=== PATIENT | male | born 1960 | race African-American/Black ===

== ENCOUNTER 2020-01-18 11:35 | Inpatient (IN) ==
[2020-01-18] MEDS ORDERED: LEVOFLOXACIN INJ 750 MG in PREMIX 1 EACH IV STA (13:15)
[2020-01-18 13:44] LABS: Basophils # 0.1 10*3/uL (0.0-0.2); Basophils % 0.5 % (0.0-0.8); Eosinophils # 0.3 10*3/uL (0.0-0.87); Eosinophils % 2.6 % (0.00-10.9); Hematocrit 35.3 VOL% (42.0-52.0); Immature Granulocytes % 0.5 %; Immature Granulocytes Absolute 0.05 #; Lymphocytes # 1.7 10*3/uL (1.4-4.0); Lymphocytes % 17.2 % (21.2-54.2); Mean Corpuscular HGB Conc 31.2 GM/DL (32-36); Mean Corpuscular Volume 74.2 FL (87-102); Mean Platelet Volume 9.7 FL (9.6-12.0); Monocytes % 9.2 % (1.7-12.7); Platelet Count 293 T/CUMM (130-400); Red Blood Count 4.76 MC/CUMM (3.8-5.5); Red Cell Distribution Width 14.1 % (9.3-17.3); White Blood Count 9.9 T/CUMM (4-12)
[2020-01-18 14:13] LABS: Alanine Aminotransferase < 9 U/L (16-61); Albumin 2.9 G/DL (3.4-5.0); Alkaline Phosphatase 75 U/L (45-117); Aspartate Amino Transferase 9 U/L (0-37); Bilirubin,Total < 0.39 MG/DL (0.2-1.0); Blood Urea Nitrogen 30 MG/DL (7-18); Calcium 10.8 MG/DL (8.5-10.1); Estimated Glom Filtration Rate 9 ML/MIN; Glucose 88 MG/DL (74-106); Osmolality,Calculated 266.7 MOS/KG (273-304); Total Protein 8.2 G/DL (6.4-8.3)
[2020-01-18] MEDS ORDERED: DEXTROSE 50% 25 GM/50 ML SYRINGE IV PRN (15:41)
[2020-01-18] MEDS ORDERED: GLUCAGON 1 MG VIAL IM PRN (15:41)
[2020-01-18] MEDS ORDERED: LOPERAMIDE 2 MG CAPSULE PO PRN (16:02)
[2020-01-18] MEDS ORDERED: INFLUENZA VIRUS VACCINE 0.5 ML SYRINGE IM ONE (19:40)
[2020-01-18] MEDS: MEROPENEM 500 MG in SODIUM CHLORIDE 0.9% 100 ML IV SCH (21:40)
[2020-01-18] MEDS: METOPROLOL TARTRATE 100 MG TABLET PO SCH (21:40)
[2020-01-18] MEDS: hydrALAZINE 25 MG TABLET PO SCH (21:40)
[2020-01-18] MEDS: TOBRAMYCIN/DEXAMETHASONE OPH OINT 3.5 GM TUBE BOTH EYES SCH (21:44)
[2020-01-18] MEDS: MINERAL OIL/PETROLATUM OPH OINT 3.5 GM TUBE BOTH EYES SCH (21:45)
[2020-01-18] MEDS: POLYVINYL ALCOHOL 1.4% OPH SOLN 15 ML BOTTLE LEFT EYE SCH (21:46)
[2020-01-19 04:45] LABS: Basophils % 0.3 % (0.0-0.8); Eosinophils # 0.3 10*3/uL (0.0-0.87); Eosinophils % 2.1 % (0.00-10.9); Hematocrit 31.6 VOL% (42.0-52.0); Hemoglobin 9.8 GM/DL (14.0-18.0); Immature Granulocytes % 0.5 %; Immature Granulocytes Absolute 0.07 #; Lymphocytes # 1.6 10*3/uL (1.4-4.0); Lymphocytes % 12.4 % (21.2-54.2); Mean Corpuscular Volume 74.7 FL (87-102); Mean Platelet Volume 10.2 FL (9.6-12.0); Monocytes % 8.2 % (1.7-12.7); Neutrophils % 76.5 % (38.7-73.9); Platelet Count 301 T/CUMM (130-400); Red Blood Count 4.23 MC/CUMM (3.8-5.5); Red Cell Distribution Width 13.7 % (9.3-17.3); White Blood Count 13.1 T/CUMM (4-12)
[2020-01-19 05:04] LABS: Calcium 10.8 MG/DL (8.5-10.1); Osmolality,Calculated 265.8 MOS/KG (273-304)
[2020-01-19] MEDS: hydrALAZINE 25 MG TABLET PO SCH ×3 (05:33→21:27)
[2020-01-19] MEDS: POLYVINYL ALCOHOL 1.4% OPH SOLN 15 ML BOTTLE LEFT EYE SCH ×5 (05:33→21:28)
[2020-01-19] MEDS ORDERED: busPIRone 5 MG TABLET PO SCH (09:00)
[2020-01-19] MEDS: FINASTERIDE 5 MG TABLET PO SCH (09:32)
[2020-01-19] MEDS: SEVELAMER CARBONATE POWDER 2.4 GM PACK PO SCH (09:32)
[2020-01-19] MEDS: busPIRone 5 MG TABLET PO SCH (09:32)
[2020-01-19] MEDS: METOPROLOL TARTRATE 100 MG TABLET PO SCH ×2 (09:32→21:27)
[2020-01-19] MEDS: MULTIVITAMIN (CENTRUM) TABLET PO SCH (09:33)
[2020-01-19] MEDS: FERROUS SULFATE 325 MG TABLET PO SCH (09:33)
[2020-01-19] MEDS: amLODIPine 10 MG TABLET PO SCH (09:33)
[2020-01-19] MEDS: TOBRAMYCIN/DEXAMETHASONE OPH OINT 3.5 GM TUBE BOTH EYES SCH ×3 (09:34→21:29)
[2020-01-19] MEDS: MINERAL OIL/PETROLATUM OPH OINT 3.5 GM TUBE BOTH EYES SCH ×3 (09:35→21:29)
[2020-01-19] MEDS ORDERED: LIDOCAINE 1% 20 ML VIAL MISC INJ ONE (10:10)
[2020-01-19] MEDS ORDERED: LIDOCAINE 2% VISCOUS 100 ML BOTTLE SWISH/SPIT ONE (10:10)
[2020-01-19] MEDS ORDERED: MEPERIDINE 50 MG/1 ML VIAL IM ONE (10:10)
[2020-01-19] MEDS ORDERED: PROMETHAZINE 25 MG/1 ML VIAL IM ONE (10:10)
[2020-01-19] MEDS ORDERED: LIDOCAINE 2% 20 ML VIAL RESP TX ONE (10:10)
[2020-01-19] MEDS ORDERED: MIDAZOLAM 2 MG/2 ML VIAL IV ONE (10:30)
[2020-01-19] MEDS: ALBUTEROL/IPRATROPIUM 3 ML NEB RESP TX SCH ×2 (12:39→19:30)
[2020-01-19] MEDS ORDERED: AZITHROMYCIN INJ 500 MG in SODIUM CHLORIDE 0.9% 250 ML IV SCH (13:30)
[2020-01-19] MEDS: MEROPENEM 500 MG in SODIUM CHLORIDE 0.9% 100 ML IV SCH (21:30)
[2020-01-20] MEDS: ALBUTEROL/IPRATROPIUM 3 ML NEB RESP TX SCH ×4 (01:33→18:48)
[2020-01-20 04:08] LABS: Basophils # 0.1 10*3/uL (0.0-0.2); Basophils % 0.4 % (0.0-0.8); Eosinophils # 0.1 10*3/uL (0.0-0.87); Eosinophils % 0.8 % (0.00-10.9); Hematocrit 33.8 VOL% (42.0-52.0); Hemoglobin 10.5 GM/DL (14.0-18.0); Immature Granulocytes % 0.6 %; Immature Granulocytes Absolute 0.09 #; Lymphocytes # 1.8 10*3/uL (1.4-4.0); Lymphocytes % 11.7 % (21.2-54.2); Mean Corpuscular HGB Conc 31.1 GM/DL (32-36); Mean Corpuscular Volume 74.3 FL (87-102); Mean Platelet Volume 10.5 FL (9.6-12.0); Monocytes % 7.4 % (1.7-12.7); Neutrophils % 79.1 % (38.7-73.9); Platelet Count 344 T/CUMM (130-400); Red Blood Count 4.55 MC/CUMM (3.8-5.5); Red Cell Distribution Width 13.8 % (9.3-17.3); White Blood Count 15.3 T/CUMM (4-12)
[2020-01-20 04:46] LABS: Calcium 10.7 MG/DL (8.5-10.1); Osmolality,Calculated 267.9 MOS/KG (273-304)
[2020-01-20] MEDS: POLYVINYL ALCOHOL 1.4% OPH SOLN 15 ML BOTTLE LEFT EYE SCH ×5 (05:47→21:16)
[2020-01-20] MEDS: hydrALAZINE 25 MG TABLET PO SCH ×3 (05:47→21:03)
[2020-01-20] MEDS: MINERAL OIL/PETROLATUM OPH OINT 3.5 GM TUBE BOTH EYES SCH ×4 (10:21→21:16)
[2020-01-20] MEDS: TOBRAMYCIN/DEXAMETHASONE OPH OINT 3.5 GM TUBE BOTH EYES SCH ×4 (10:21→21:16)
[2020-01-20] MEDS ORDERED: VANCOMYCIN INJ 500 MG in SODIUM CHLORIDE 0.9% 100 ML IV PRN (10:39)
[2020-01-20] MEDS: FINASTERIDE 5 MG TABLET PO SCH (13:11)
[2020-01-20] MEDS: SEVELAMER CARBONATE POWDER 2.4 GM PACK PO SCH (13:11)
[2020-01-20] MEDS: MULTIVITAMIN (CENTRUM) TABLET PO SCH (13:11)
[2020-01-20] MEDS: FERROUS SULFATE 325 MG TABLET PO SCH (13:11)
[2020-01-20] MEDS: amLODIPine 10 MG TABLET PO SCH (13:11)
[2020-01-20] MEDS: busPIRone 5 MG TABLET PO SCH (13:12)
[2020-01-20] MEDS: AZITHROMYCIN 250 MG TABLET PO SCH (13:12)
[2020-01-20] MEDS: METOPROLOL TARTRATE 100 MG TABLET PO SCH ×2 (13:12→21:03)
[2020-01-20] MEDS ORDERED: VANCOMYCIN INJ 1,500 MG in SODIUM CHLORIDE 0.9% 500 ML IV ONE (17:00)
[2020-01-20] MEDS: MEROPENEM 500 MG in SODIUM CHLORIDE 0.9% 100 ML IV SCH (21:03)
[2020-01-21] MEDS: ALBUTEROL/IPRATROPIUM 3 ML NEB RESP TX SCH ×4 (00:10→19:03)
[2020-01-21 06:36] LABS: Basophils % 0.2 % (0.0-0.8); Eosinophils # 0.2 10*3/uL (0.0-0.87); Eosinophils % 1.6 % (0.00-10.9); Hematocrit 29.5 VOL% (42.0-52.0); Hemoglobin 9.2 GM/DL (14.0-18.0); Immature Granulocytes % 0.5 %; Immature Granulocytes Absolute 0.07 #; Lymphocytes # 1.6 10*3/uL (1.4-4.0); Lymphocytes % 10.1 % (21.2-54.2); Mean Corpuscular HGB Conc 31.2 GM/DL (32-36); Mean Corpuscular Volume 74.9 FL (87-102); Mean Platelet Volume 10.6 FL (9.6-12.0); Monocytes % 7.5 % (1.7-12.7); Neutrophils % 80.1 % (38.7-73.9); Platelet Count 254 T/CUMM (130-400); Red Blood Count 3.94 MC/CUMM (3.8-5.5); Red Cell Distribution Width 13.7 % (9.3-17.3); White Blood Count 15.3 T/CUMM (4-12)
[2020-01-21 06:41] LABS: Osmolality,Calculated 270.1 MOS/KG (273-304)
[2020-01-21] MEDS: POLYVINYL ALCOHOL 1.4% OPH SOLN 15 ML BOTTLE LEFT EYE SCH ×5 (07:18→21:19)
[2020-01-21] MEDS: hydrALAZINE 25 MG TABLET PO SCH ×3 (07:18→21:18)
[2020-01-21] MEDS: MULTIVITAMIN (CENTRUM) TABLET PO SCH ×2 (09:21→09:58)
[2020-01-21] MEDS: busPIRone 5 MG TABLET PO SCH ×2 (09:21→09:58)
[2020-01-21] MEDS: METOPROLOL TARTRATE 100 MG TABLET PO SCH ×3 (09:21→21:18)
[2020-01-21] MEDS: AZITHROMYCIN 250 MG TABLET PO SCH ×2 (09:21→09:59)
[2020-01-21] MEDS: amLODIPine 10 MG TABLET PO SCH ×2 (09:22→09:58)
[2020-01-21] MEDS: FERROUS SULFATE 325 MG TABLET PO SCH ×2 (09:22→09:58)
[2020-01-21] MEDS: SEVELAMER CARBONATE POWDER 2.4 GM PACK PO SCH ×2 (09:22→09:58)
[2020-01-21] MEDS: FINASTERIDE 5 MG TABLET PO SCH ×2 (09:22→09:59)
[2020-01-21] MEDS: TOBRAMYCIN/DEXAMETHASONE OPH OINT 3.5 GM TUBE BOTH EYES SCH ×4 (09:23→21:20)
[2020-01-21] MEDS: MINERAL OIL/PETROLATUM OPH OINT 3.5 GM TUBE BOTH EYES SCH ×4 (09:24→21:20)
[2020-01-21] MEDS: CLINDAMYCIN INJ 600 MG in PREMIX 1 EACH IV SCH ×2 (13:19→21:18)
[2020-01-21] MEDS: LACTULOSE 20 GM/30 ML UDCUP PO SCH ×2 (13:19→21:18)
[2020-01-22] MEDS: ALBUTEROL/IPRATROPIUM 3 ML NEB RESP TX SCH ×4 (01:24→19:35)
[2020-01-22] MEDS: CLINDAMYCIN INJ 600 MG in PREMIX 1 EACH IV SCH ×3 (04:46→21:21)
[2020-01-22] MEDS: hydrALAZINE 25 MG TABLET PO SCH ×3 (05:47→21:22)
[2020-01-22] MEDS: POLYVINYL ALCOHOL 1.4% OPH SOLN 15 ML BOTTLE LEFT EYE SCH ×5 (05:48→21:19)
[2020-01-22 06:17] LABS: Basophils # 0.1 10*3/uL (0.0-0.2); Basophils % 0.5 % (0.0-0.8); Eosinophils # 0.5 10*3/uL (0.0-0.87); Eosinophils % 5.4 % (0.00-10.9); Hematocrit 30.3 VOL% (42.0-52.0); Hemoglobin 9.5 GM/DL (14.0-18.0); Immature Granulocytes % 0.5 %; Immature Granulocytes Absolute 0.05 #; Lymphocytes # 1.2 10*3/uL (1.4-4.0); Lymphocytes % 13.2 % (21.2-54.2); Mean Corpuscular HGB Conc 31.4 GM/DL (32-36); Mean Corpuscular Volume 76.1 FL (87-102); Mean Platelet Volume 9.9 FL (9.6-12.0); Monocytes % 10.7 % (1.7-12.7); Neutrophils % 69.7 % (38.7-73.9); Platelet Count 235 T/CUMM (130-400); Red Blood Count 3.98 MC/CUMM (3.8-5.5); Red Cell Distribution Width 13.8 % (9.3-17.3); White Blood Count 9.3 T/CUMM (4-12)
[2020-01-22 06:38] LABS: Calcium 10.5 MG/DL (8.5-10.1); Osmolality,Calculated 279.7 MOS/KG (273-304)
[2020-01-22] MEDS: MULTIVITAMIN (CENTRUM) TABLET PO SCH (08:48)
[2020-01-22] MEDS: METOPROLOL TARTRATE 100 MG TABLET PO SCH ×2 (08:48→21:20)
[2020-01-22] MEDS: FINASTERIDE 5 MG TABLET PO SCH (08:48)
[2020-01-22] MEDS: SEVELAMER CARBONATE POWDER 2.4 GM PACK PO SCH (08:48)
[2020-01-22] MEDS: amLODIPine 10 MG TABLET PO SCH (08:48)
[2020-01-22] MEDS: FERROUS SULFATE 325 MG TABLET PO SCH (08:48)
[2020-01-22] MEDS: busPIRone 5 MG TABLET PO SCH (08:48)
[2020-01-22] MEDS: LACTULOSE 20 GM/30 ML UDCUP PO SCH ×2 (08:49→21:20)
[2020-01-22] MEDS: MINERAL OIL/PETROLATUM OPH OINT 3.5 GM TUBE BOTH EYES SCH ×4 (08:49→21:21)
[2020-01-22] MEDS: TOBRAMYCIN/DEXAMETHASONE OPH OINT 3.5 GM TUBE BOTH EYES SCH ×4 (08:49→21:21)
[2020-01-23] MEDS: ALBUTEROL/IPRATROPIUM 3 ML NEB RESP TX SCH ×3 (01:18→13:30)
[2020-01-23] MEDS: CLINDAMYCIN INJ 600 MG in PREMIX 1 EACH IV SCH (04:19)
[2020-01-23] MEDS: POLYVINYL ALCOHOL 1.4% OPH SOLN 15 ML BOTTLE LEFT EYE SCH ×3 (05:36→14:07)
[2020-01-23] MEDS: hydrALAZINE 25 MG TABLET PO SCH ×2 (05:36→14:07)
[2020-01-23 05:51] LABS: Basophils % 0.4 % (0.0-0.8); Eosinophils # 0.5 10*3/uL (0.0-0.87); Eosinophils % 5.4 % (0.00-10.9); Hematocrit 29.7 VOL% (42.0-52.0); Hemoglobin 9.2 GM/DL (14.0-18.0); Immature Granulocytes % 0.7 %; Immature Granulocytes Absolute 0.07 #; Lymphocytes # 1.4 10*3/uL (1.4-4.0); Lymphocytes % 13.7 % (21.2-54.2); Mean Corpuscular Volume 75.4 FL (87-102); Mean Platelet Volume 9.9 FL (9.6-12.0); Neutrophils % 70.8 % (38.7-73.9); Platelet Count 250 T/CUMM (130-400); Red Blood Count 3.94 MC/CUMM (3.8-5.5); Red Cell Distribution Width 13.7 % (9.3-17.3)
[2020-01-23 06:06] LABS: Calcium 10.2 MG/DL (8.5-10.1); Osmolality,Calculated 289.4 MOS/KG (273-304)
[2020-01-23] MEDS: SEVELAMER CARBONATE POWDER 2.4 GM PACK PO SCH (08:21)
[2020-01-23] MEDS ORDERED: cephALEXin 250 MG CAPSULE PO SCH (09:00)
[2020-01-23] MEDS: MINERAL OIL/PETROLATUM OPH OINT 3.5 GM TUBE BOTH EYES SCH ×2 (10:33→14:07)
[2020-01-23] MEDS: TOBRAMYCIN/DEXAMETHASONE OPH OINT 3.5 GM TUBE BOTH EYES SCH ×2 (10:33→14:07)
[2020-01-23] MEDS: amLODIPine 10 MG TABLET PO SCH (12:54)
[2020-01-23] MEDS: FERROUS SULFATE 325 MG TABLET PO SCH (12:55)
[2020-01-23] MEDS: METOPROLOL TARTRATE 100 MG TABLET PO SCH (12:55)
[2020-01-23] MEDS: LACTULOSE 20 GM/30 ML UDCUP PO SCH (12:55)
[2020-01-23] MEDS: FINASTERIDE 5 MG TABLET PO SCH (12:55)
[2020-01-23] MEDS: busPIRone 5 MG TABLET PO SCH (12:55)
[2020-01-23] MEDS: MULTIVITAMIN (CENTRUM) TABLET PO SCH (12:55)
[2020-01-23 15:28] VITALS: BP 107/66
== END 2020-01-23 15:45 | DRG 137 ==
LOC: EDUNIT# → EDBD → N.ED 11:35 → N.EDINP 15:41 → SUATTDRO 15:41 → N.5E 18:17
PROVIDERS: ADMIT Hospitalist; ATTEND Family Medicine

== ENCOUNTER 2020-03-20 08:16 | Inpatient (IN) ==
[2020-03-20 08:58] LABS: Basophils % 0.2 % (0.0-0.8); Eosinophils # 0.1 10*3/uL (0.0-0.87); Eosinophils % 0.9 % (0.00-10.9); Hematocrit 36.6 VOL% (42.0-52.0); Hemoglobin 11.3 GM/DL (14.0-18.0); Immature Granulocytes % 0.7 %; Lymphocytes % 6.7 % (21.2-54.2); Mean Corpuscular HGB Conc 30.9 GM/DL (32-36); Mean Corpuscular Volume 74.4 FL (87-102); Mean Platelet Volume 9.4 FL (9.6-12.0); Monocytes % 10.2 % (1.7-12.7); Neutrophils % 81.3 % (38.7-73.9); Platelet Count 261 T/CUMM (130-400); Red Blood Count 4.92 MC/CUMM (3.8-5.5); Red Cell Distribution Width 15.8 % (9.3-17.3); White Blood Count 15.4 T/CUMM (4-12)
[2020-03-20 09:26] LABS: Albumin 2.4 G/DL (3.4-5.0); Bilirubin,Total 0.4 MG/DL (0.2-1.0); Calcium 11.8 MG/DL (8.5-10.1); Ferritin 1184.1 ng/ml (26-388); Osmolality,Calculated 267.2 MOS/KG (273-304); Total Protein 8.2 G/DL (6.4-8.3)
[2020-03-20] MEDS ORDERED: DEXAMETHASONE 4 MG/1 ML VIAL IV STA (09:32)
[2020-03-20] MEDS ORDERED: LEVOFLOXACIN INJ 250 MG in PREMIX 1 EACH IV STA (09:32)
[2020-03-20] MEDS ORDERED: DEXTROSE 50% 25 GM/50 ML VIAL IV PRN (10:57)
[2020-03-20] MEDS ORDERED: GLUCAGON 1 MG VIAL IM PRN (10:57)
[2020-03-20] MEDS ORDERED: ONDANSETRON 4 MG/2 ML VIAL IV PRN (11:03)
[2020-03-20] MEDS ORDERED: MORPHINE 4 MG/1 ML VIAL IV PRN (11:03)
[2020-03-20] MEDS ORDERED: hydrALAZINE 20 MG/1 ML VIAL IV PRN (11:03)
[2020-03-20] MEDS ORDERED: guaiFENesin/DM ER 600-30 MG TABLET PO PRN (11:03)
[2020-03-20] MEDS ORDERED: ALBUTEROL/IPRATROPIUM 3 ML NEB RESP TX PRN (11:19)
[2020-03-20] MEDS: SODIUM CHLORIDE 0.9% 1,000 ML IV SCH (15:16)
[2020-03-20] MEDS: HEPARIN 5,000 UNIT/1 ML VIAL SUBCUT SCH ×2 (15:17→21:23)
[2020-03-20] MEDS: ACETAMINOPHEN 325 MG TABLET PO PRN (15:18)
[2020-03-20] MEDS: CEFEPIME 1,000 MG in SODIUM CHLORIDE 0.9% 100 ML IV SCH (15:28)
[2020-03-21 04:50] LABS: Hematocrit 31.1 VOL% (42.0-52.0); Hemoglobin 9.6 GM/DL (14.0-18.0); Immature Granulocytes % 0.8 %; Immature Granulocytes Absolute 0.09 #; Lymphocytes # 0.7 10*3/uL (1.4-4.0); Lymphocytes % 6.3 % (21.2-54.2); Mean Corpuscular HGB Conc 30.9 GM/DL (32-36); Mean Corpuscular Volume 74.4 FL (87-102); Mean Platelet Volume 9.8 FL (9.6-12.0); Monocytes % 4.2 % (1.7-12.7); Neutrophils % 88.7 % (38.7-73.9); Platelet Count 226 T/CUMM (130-400); Red Blood Count 4.18 MC/CUMM (3.8-5.5); Red Cell Distribution Width 15.3 % (9.3-17.3); White Blood Count 10.9 T/CUMM (4-12)
[2020-03-21 05:24] LABS: Alanine Aminotransferase < 9 U/L (16-61); Albumin 2.2 G/DL (3.4-5.0); Alkaline Phosphatase 67 U/L (45-117); Aspartate Amino Transferase 11 U/L (0-37); Blood Urea Nitrogen 27 MG/DL (7-18); Calcium 11.8 MG/DL (8.5-10.1); Estimated Glom Filtration Rate 12 ML/MIN; Glucose 146 MG/DL (74-106); HDL Cholesterol 28 MG/DL (40-60); Risk Ratio 2.89; Thyroid Stimulating Hormone 0.638 uIU/ml (0.358-3.74); Total Protein 7.6 G/DL (6.4-8.3); Triglycerides 71 MG/DL (2-150); VLDL CHOLESTEROL 14.2 MG/DL
[2020-03-21] MEDS: HEPARIN 5,000 UNIT/1 ML VIAL SUBCUT SCH ×2 (06:10→16:53)
[2020-03-21] MEDS: SODIUM CHLORIDE 0.9% 1,000 ML IV SCH ×2 (06:13→22:12)
[2020-03-21] MEDS: CEFEPIME 1,000 MG in SODIUM CHLORIDE 0.9% 100 ML IV SCH (16:54)
[2020-03-22] MEDS: HEPARIN 5,000 UNIT/1 ML VIAL SUBCUT SCH ×3 (00:13→17:58)
[2020-03-22 05:53] LABS: Basophils % 0.2 % (0.0-0.8); Eosinophils # 0.1 10*3/uL (0.0-0.87); Eosinophils % 0.3 % (0.00-10.9); Hematocrit 27.9 VOL% (42.0-52.0); Hemoglobin 8.5 GM/DL (14.0-18.0); Immature Granulocytes % 1.2 %; Immature Granulocytes Absolute 0.21 #; Lymphocytes # 1.5 10*3/uL (1.4-4.0); Lymphocytes % 8.4 % (21.2-54.2); Mean Corpuscular HGB Conc 30.5 GM/DL (32-36); Mean Platelet Volume 10.4 FL (9.6-12.0); Monocytes % 7.3 % (1.7-12.7); Neutrophils % 82.6 % (38.7-73.9); Platelet Count 262 T/CUMM (130-400); Red Blood Count 3.72 MC/CUMM (3.8-5.5); Red Cell Distribution Width 15.2 % (9.3-17.3)
[2020-03-22 06:13] LABS: Alanine Aminotransferase < 9 U/L (16-61); Alkaline Phosphatase 64 U/L (45-117); Aspartate Amino Transferase 7 U/L (0-37); Blood Urea Nitrogen 39 MG/DL (7-18); Calcium 11.6 MG/DL (8.5-10.1); Estimated Glom Filtration Rate 7 ML/MIN; Glucose 88 MG/DL (74-106); Osmolality,Calculated 288.3 MOS/KG (273-304); Total Protein 6.7 G/DL (6.4-8.3)
[2020-03-22 06:23] LABS: Parathyroid Hormone Intact 13.8 PG/ML (18.4-80.1)
[2020-03-22 06:23] LABS: % Iron Saturation 65.5 % (18-50); Total Protein 6.7 G/DL (6.4-8.3)
[2020-03-22 08:21] LABS: Immunoglobulin A (Chem) 245 MG/DL (70-400); Immunoglobulin G (Chem) 2140 MG/DL (700-1600); Immunoglobulin M (Chem) 60 MG/DL (40-230); Total Protein (Chem) 6.7 G/DL (6.4-8.3)
[2020-03-22 08:24] LABS: Albumin (SPE) Rel % 46.5 %; Alpha 2 (SPE) Rel % 9.1 %; Beta (SPE) Rel % 7.1 %
[2020-03-22 08:48] LABS: Albumin (SPE) 3.1 G/DL (3.2-5.3); Alpha 1 (SPE) 0.3 G/DL (0.1-0.4)
[2020-03-22 08:49] LABS: Alpha 2 (SPE) 0.6 G/DL (0.4-1.0); Beta (SPE) 0.5 G/DL (0.5-1.1); Gamma (SPE) 2.2 G/DL (0.7-1.7)
[2020-03-22 08:50] LABS: Gamma (SPE) Rel % 33.3 %
[2020-03-22] MEDS: CEFEPIME 1,000 MG in SODIUM CHLORIDE 0.9% 100 ML IV SCH (17:58)
[2020-03-22] MEDS: SODIUM CHLORIDE 0.9% 1,000 ML IV SCH ×2 (18:34→22:04)
[2020-03-23] MEDS: HEPARIN 5,000 UNIT/1 ML VIAL SUBCUT SCH ×3 (01:24→17:22)
[2020-03-23 05:47] LABS: Basophils % 0.1 % (0.0-0.8); Eosinophils # 0.1 10*3/uL (0.0-0.87); Eosinophils % 1.3 % (0.00-10.9); Hematocrit 29.7 VOL% (42.0-52.0); Hemoglobin 8.9 GM/DL (14.0-18.0); Immature Granulocytes % 1.2 %; Immature Granulocytes Absolute 0.12 #; Lymphocytes # 0.8 10*3/uL (1.4-4.0); Lymphocytes % 7.8 % (21.2-54.2); Mean Platelet Volume 10.5 FL (9.6-12.0); Monocytes % 9.9 % (1.7-12.7); Neutrophils % 79.7 % (38.7-73.9); Platelet Count 246 T/CUMM (130-400); Red Blood Count 3.96 MC/CUMM (3.8-5.5); Red Cell Distribution Width 15.3 % (9.3-17.3)
[2020-03-23 05:56] LABS: White Blood Count 10.4 T/CUMM (4-12)
[2020-03-23 06:13] LABS: Albumin 1.9 G/DL (3.4-5.0); Calcium 10.9 MG/DL (8.5-10.1); Osmolality,Calculated 282.5 MOS/KG (273-304); Total Protein 6.8 G/DL (6.4-8.3)
[2020-03-23] MEDS: SODIUM CHLORIDE 0.9% 1,000 ML IV SCH ×2 (09:34→22:53)
[2020-03-23] MEDS ORDERED: MINERAL OIL/PETROLATUM OPH OINT 3.5 GM TUBE BOTH EYES PRN (13:00)
[2020-03-23] MEDS: POLYVINYL ALCOHOL 1.4% OPH SOLN 15 ML BOTTLE LEFT EYE SCH ×3 (14:16→21:40)
[2020-03-23] MEDS: TOBRAMYCIN/DEXAMETHASONE OPH OINT 3.5 GM TUBE BOTH EYES SCH ×3 (14:17→21:40)
[2020-03-23] MEDS: CEFEPIME 1,000 MG in SODIUM CHLORIDE 0.9% 100 ML IV SCH (17:15)
[2020-03-23 18:56] LABS: Total Protein 24 Hr Ur Result 100 MG/24HR (0-149.1); Total Volume,Urine 110 ML (400-2000)
[2020-03-24] MEDS: HEPARIN 5,000 UNIT/1 ML VIAL SUBCUT SCH ×3 (02:40→16:52)
[2020-03-24] MEDS: POLYVINYL ALCOHOL 1.4% OPH SOLN 15 ML BOTTLE LEFT EYE SCH ×5 (06:30→22:18)
[2020-03-24 06:35] LABS: Basophils % 0.3 % (0.0-0.8); Eosinophils # 0.1 10*3/uL (0.0-0.87); Immature Granulocytes % 1.1 %; Immature Granulocytes Absolute 0.14 #; Lymphocytes # 1.3 10*3/uL (1.4-4.0); Lymphocytes % 9.9 % (21.2-54.2); Mean Corpuscular Volume 75.8 FL (87-102); Mean Platelet Volume 10.8 FL (9.6-12.0); Monocytes % 7.8 % (1.7-12.7); Neutrophils % 79.9 % (38.7-73.9); Platelet Count 227 T/CUMM (130-400); Red Blood Count 3.96 MC/CUMM (3.8-5.5); Red Cell Distribution Width 15.4 % (9.3-17.3); White Blood Count 13.2 T/CUMM (4-12)
[2020-03-24 06:50] LABS: Alanine Aminotransferase 12 U/L (16-61); Alkaline Phosphatase 75 U/L (45-117); Aspartate Amino Transferase 20 U/L (0-37); Bilirubin,Total < 0.39 MG/DL (0.2-1.0); Blood Urea Nitrogen 52 MG/DL (7-18); Calcium 11.3 MG/DL (8.5-10.1); Estimated Glom Filtration Rate 8 ML/MIN; Glucose 71 MG/DL (74-106); Osmolality,Calculated 294.1 MOS/KG (273-304)
[2020-03-24] MEDS: TOBRAMYCIN/DEXAMETHASONE OPH OINT 3.5 GM TUBE BOTH EYES SCH ×4 (08:09→22:18)
[2020-03-24] MEDS: SODIUM CHLORIDE 0.9% 1,000 ML IV SCH (11:10)
[2020-03-24] MEDS: DEXTROSE 5% NACL 0.45% 1,000 ML IV SCH (13:20)
[2020-03-24] MEDS: CEFEPIME 1,000 MG in SODIUM CHLORIDE 0.9% 100 ML IV SCH (16:51)
[2020-03-25] MEDS: HEPARIN 5,000 UNIT/1 ML VIAL SUBCUT SCH ×3 (01:38→17:32)
[2020-03-25 06:08] LABS: Basophils % 0.3 % (0.0-0.8); Eosinophils # 0.5 10*3/uL (0.0-0.87); Eosinophils % 3.5 % (0.00-10.9); Hematocrit 29.5 VOL% (42.0-52.0); Hemoglobin 9.1 GM/DL (14.0-18.0); Immature Granulocytes % 1.7 %; Immature Granulocytes Absolute 0.24 #; Lymphocytes # 0.9 10*3/uL (1.4-4.0); Mean Corpuscular HGB Conc 30.8 GM/DL (32-36); Mean Corpuscular Volume 74.5 FL (87-102); Mean Platelet Volume 10.3 FL (9.6-12.0); Monocytes % 6.1 % (1.7-12.7); Neutrophils % 82.4 % (38.7-73.9); Platelet Count 238 T/CUMM (130-400); Red Blood Count 3.96 MC/CUMM (3.8-5.5); Red Cell Distribution Width 15.5 % (9.3-17.3); White Blood Count 14.2 T/CUMM (4-12)
[2020-03-25] MEDS: POLYVINYL ALCOHOL 1.4% OPH SOLN 15 ML BOTTLE LEFT EYE SCH ×5 (06:10→22:14)
[2020-03-25 06:19] LABS: Albumin 1.9 G/DL (3.4-5.0); Bilirubin,Total 1.2 MG/DL (0.2-1.0); Calcium 12.3 MG/DL (8.5-10.1); Total Protein 6.7 G/DL (6.4-8.3)
[2020-03-25] MEDS: TOBRAMYCIN/DEXAMETHASONE OPH OINT 3.5 GM TUBE BOTH EYES SCH ×3 (09:08→22:14)
[2020-03-25] MEDS: CEFEPIME 1,000 MG in SODIUM CHLORIDE 0.9% 100 ML IV SCH (17:32)
[2020-03-26] MEDS: DEXTROSE 5% NACL 0.45% 1,000 ML IV SCH ×2 (00:43→23:53)
[2020-03-26] MEDS: HEPARIN 5,000 UNIT/1 ML VIAL SUBCUT SCH ×3 (00:48→16:13)
[2020-03-26] MEDS: POLYVINYL ALCOHOL 1.4% OPH SOLN 15 ML BOTTLE LEFT EYE SCH ×5 (05:44→21:09)
[2020-03-26 05:54] LABS: Basophils # 0.1 10*3/uL (0.0-0.2); Basophils % 0.3 % (0.0-0.8); Eosinophils # 0.4 10*3/uL (0.0-0.87); Eosinophils % 2.2 % (0.00-10.9); Hematocrit 31.6 VOL% (42.0-52.0); Hemoglobin 9.6 GM/DL (14.0-18.0); Immature Granulocytes % 1.4 %; Immature Granulocytes Absolute 0.27 #; Lymphocytes # 1.2 10*3/uL (1.4-4.0); Lymphocytes % 6.3 % (21.2-54.2); Mean Corpuscular HGB Conc 30.4 GM/DL (32-36); Mean Corpuscular Volume 74.2 FL (87-102); Mean Platelet Volume 10.4 FL (9.6-12.0); Monocytes % 7.7 % (1.7-12.7); Neutrophils % 82.1 % (38.7-73.9); Platelet Count 255 T/CUMM (130-400); Red Blood Count 4.26 MC/CUMM (3.8-5.5); Red Cell Distribution Width 15.7 % (9.3-17.3); White Blood Count 18.7 T/CUMM (4-12)
[2020-03-26 06:09] LABS: Albumin 1.9 G/DL (3.4-5.0); Bilirubin,Total 0.4 MG/DL (0.2-1.0); Calcium 11.4 MG/DL (8.5-10.1); Osmolality,Calculated 285.4 MOS/KG (273-304); Total Protein 7.2 G/DL (6.4-8.3)
[2020-03-26] MEDS: TOBRAMYCIN/DEXAMETHASONE OPH OINT 3.5 GM TUBE BOTH EYES SCH ×4 (09:15→21:08)
[2020-03-26 10:11] LABS: 24 Hr Protein (Bench) 100 MG/24HR (0-149.1); Albumin (UPE) 67.1 MG/24H; Albumin (UPE) Rel % 67.1 %; Alpha 1 (UPE) 13.8 MG/24H
[2020-03-26 10:12] LABS: Alpha 1 (UPE) Rel % 13.8 %; Alpha 2 (UPE) 3.5 MG/24H; Alpha 2 (UPE) Rel % 3.5 %; Beta (UPE) 3.5 MG/24H; Beta (UPE) Rel % 3.5 %; Gamma (UPE) 12.1 MG/24H
[2020-03-26 12:31] LABS: Gamma (UPE) Rel % 12.1 %
[2020-03-26] MEDS ORDERED: LACTULOSE 20 GM/30 ML UDCUP PO PRN (15:34)
[2020-03-26] MEDS: CEFEPIME 1,000 MG in SODIUM CHLORIDE 0.9% 100 ML IV SCH (16:09)
[2020-03-26] MEDS: AZITHROMYCIN 250 MG TABLET PO SCH (16:11)
[2020-03-26] MEDS: hydrALAZINE 25 MG TABLET PO SCH (21:08)
[2020-03-27] MEDS: HEPARIN 5,000 UNIT/1 ML VIAL SUBCUT SCH ×3 (01:02→17:29)
[2020-03-27] MEDS: ACETAMINOPHEN 325 MG TABLET PO PRN (03:54)
[2020-03-27] MEDS: hydrALAZINE 25 MG TABLET PO SCH ×3 (05:08→21:06)
[2020-03-27] MEDS: POLYVINYL ALCOHOL 1.4% OPH SOLN 15 ML BOTTLE LEFT EYE SCH ×5 (05:09→21:30)
[2020-03-27] MEDS: TOBRAMYCIN/DEXAMETHASONE OPH OINT 3.5 GM TUBE BOTH EYES SCH ×4 (08:48→20:35)
[2020-03-27] MEDS: SEVELAMER CARBONATE POWDER 2.4 GM PACK PO SCH (08:49)
[2020-03-27 09:09] LABS: Basophils % 0.2 % (0.0-0.8); Eosinophils # 0.2 10*3/uL (0.0-0.87); Eosinophils % 0.9 % (0.00-10.9); Hematocrit 28.2 VOL% (42.0-52.0); Hemoglobin 8.8 GM/DL (14.0-18.0); Immature Granulocytes % 1.5 %; Immature Granulocytes Absolute 0.29 #; Lymphocytes # 0.9 10*3/uL (1.4-4.0); Lymphocytes % 4.8 % (21.2-54.2); Mean Corpuscular HGB Conc 31.2 GM/DL (32-36); Mean Corpuscular Volume 73.4 FL (87-102); Mean Platelet Volume 9.6 FL (9.6-12.0); Monocytes % 6.7 % (1.7-12.7); Neutrophils % 85.9 % (38.7-73.9); Platelet Count 221 T/CUMM (130-400); Red Blood Count 3.84 MC/CUMM (3.8-5.5); Red Cell Distribution Width 15.7 % (9.3-17.3); White Blood Count 19.6 T/CUMM (4-12)
[2020-03-27 09:56] LABS: Anisocytosis 2+; Band Neutrophils 1 % (0-10); Lymphocytes 7 % (20-55); Macrocytosis 1+; Platelet Estimate Normal; Segmented Neutrophils 85 % (50-85); Target Cells Few; Total Cells Counted 100
[2020-03-27] MEDS: AZITHROMYCIN 250 MG TABLET PO SCH (13:11)
[2020-03-27] MEDS: amLODIPine 10 MG TABLET PO SCH (13:12)
[2020-03-27] MEDS: busPIRone 5 MG TABLET PO SCH (13:12)
[2020-03-27] MEDS: CEFEPIME 1,000 MG in SODIUM CHLORIDE 0.9% 100 ML IV SCH (17:28)
[2020-03-27] MEDS: CLINDAMYCIN INJ 600 MG in PREMIX 1 EACH IV SCH (18:07)
[2020-03-27] MEDS: LACTULOSE 20 GM/30 ML UDCUP PO SCH (20:35)
[2020-03-28] MEDS: CLINDAMYCIN INJ 600 MG in PREMIX 1 EACH IV SCH ×2 (00:13→08:17)
[2020-03-28] MEDS: HEPARIN 5,000 UNIT/1 ML VIAL SUBCUT SCH ×2 (00:14→08:17)
[2020-03-28] MEDS: DEXTROSE 5% NACL 0.45% 1,000 ML IV SCH ×2 (04:49→14:13)
[2020-03-28] MEDS: hydrALAZINE 25 MG TABLET PO SCH ×2 (05:18→14:23)
[2020-03-28] MEDS: POLYVINYL ALCOHOL 1.4% OPH SOLN 15 ML BOTTLE LEFT EYE SCH ×3 (05:19→14:23)
[2020-03-28 05:23] LABS: Basophils # 0.1 10*3/uL (0.0-0.2); Basophils % 0.4 % (0.0-0.8); Eosinophils # 0.4 10*3/uL (0.0-0.87); Hematocrit 28.6 VOL% (42.0-52.0); Immature Granulocytes % 1.5 %; Immature Granulocytes Absolute 0.21 #; Lymphocytes # 1.1 10*3/uL (1.4-4.0); Lymphocytes % 7.6 % (21.2-54.2); Mean Corpuscular HGB Conc 31.5 GM/DL (32-36); Mean Platelet Volume 10.3 FL (9.6-12.0); Monocytes % 9.4 % (1.7-12.7); Neutrophils % 78.1 % (38.7-73.9); Platelet Count 194 T/CUMM (130-400); Red Blood Count 3.92 MC/CUMM (3.8-5.5); Red Cell Distribution Width 15.8 % (9.3-17.3); White Blood Count 13.9 T/CUMM (4-12)
[2020-03-28 07:44] LABS: Immuno Free Light Chain Kappa 16.14 MG/DL (0.33-1.94); Immuno Free Light Chain Lambda 93.1 MG/DL (0.57-2.63); Immuno Free Light Chain Ratio 0.17 MG/DL (0.26-1.65)
[2020-03-28] MEDS: LACTULOSE 20 GM/30 ML UDCUP PO SCH (08:16)
[2020-03-28] MEDS: amLODIPine 10 MG TABLET PO SCH (08:16)
[2020-03-28] MEDS: busPIRone 5 MG TABLET PO SCH (08:16)
[2020-03-28] MEDS: SEVELAMER CARBONATE POWDER 2.4 GM PACK PO SCH (08:17)
[2020-03-28] MEDS: TOBRAMYCIN/DEXAMETHASONE OPH OINT 3.5 GM TUBE BOTH EYES SCH ×2 (08:18→14:23)
[2020-03-28 11:43] VITALS: BP 128/61
== END 2020-03-28 14:48 | DRG 139 ==
LOC: N.ED 08:16 → N.EDINP 10:57 → SUATTDRO 10:57 → N.EDINP 13:17 → N.5E 14:02
PROVIDERS: ADMIT Family Medicine; ATTEND Internal Medicine

== ENCOUNTER 2020-03-31 16:27 | Inpatient (IN) ==
[2020-03-31] MEDS ORDERED: SODIUM CHLORIDE 0.9% 500 ML IV STA (16:49)
[2020-03-31 17:19] LABS: ABG Base Excess -0.6 MMOL/L (-2.5-2.5); ABG HCO3 23.8 MMOL/L (20-26); ABG Oxygen Saturation 89.7 % (95-100); ABG PCO2 62.1 MM HG (35-48); ABG PH 7.258 (7.35-7.45); ABG PO2 65.2 MM HG (80-95); ABG TCO2 25.6 MMOL/L (23-27)
[2020-03-31 17:58] LABS: Basophils # 0.1 10*3/uL (0.0-0.2); Basophils % 0.2 % (0.0-0.8); Hematocrit 35.8 VOL% (42.0-52.0); Hemoglobin 10.7 GM/DL (14.0-18.0); Immature Granulocytes % 2.9 %; Immature Granulocytes Absolute 0.96 #; Lymphocytes # 0.7 10*3/uL (1.4-4.0); Lymphocytes % 2.1 % (21.2-54.2); Mean Corpuscular HGB Conc 29.9 GM/DL (32-36); Mean Platelet Volume 9.8 FL (9.6-12.0); NRBC # 0.02 10*3/uL; Neutrophils % 86.8 % (38.7-73.9); Platelet Count 394 T/CUMM (130-400); Red Blood Count 4.71 MC/CUMM (3.8-5.5); Red Cell Distribution Width 16.5 % (9.3-17.3); White Blood Count 33.4 T/CUMM (4-12)
[2020-03-31] MEDS ORDERED: VANCOMYCIN INJ 1,000 MG in SODIUM CHLORIDE 0.9% 250 ML IV STA (18:04)
[2020-03-31] MEDS ORDERED: SODIUM CHLORIDE 0.9% 1,000 ML IV STA (18:04)
[2020-03-31] MEDS ORDERED: MEROPENEM 1,000 MG in SODIUM CHLORIDE 0.9% 100 ML IV ONE (18:04)
[2020-03-31 18:09] LABS: PT Patient Result 10.9 SECS (9.8-11.9)
[2020-03-31 18:23] LABS: Alanine Aminotransferase 15 U/L (16-61); Albumin 2.4 G/DL (3.4-5.0); Alkaline Phosphatase 116 U/L (45-117); Aspartate Amino Transferase 21 U/L (0-37); Bilirubin,Total < 0.39 MG/DL (0.2-1.0); Blood Urea Nitrogen 19 MG/DL (7-18); Estimated Glom Filtration Rate 17 ML/MIN; Glucose 80 MG/DL (74-106); Total Protein 8.9 G/DL (6.4-8.3); Troponin I < 0.015 NG/ML (0.00-0.045)
[2020-03-31 18:24] LABS: Hypochromasia 1+; Lymphocytes 1 % (20-55); Platelet Estimate Adequate; Polychromasia Few; Segmented Neutrophils 95 % (50-85); Total Cells Counted 100
[2020-03-31] MEDS ORDERED: MEROPENEM 500 MG in SODIUM CHLORIDE 0.9% 100 ML IV STA (18:31)
[2020-03-31] MEDS ORDERED: DEXTROSE 50% 25 GM/50 ML VIAL IV PRN (20:34)
[2020-03-31] MEDS ORDERED: ONDANSETRON 4 MG/2 ML VIAL IV PRN (20:34)
[2020-03-31] MEDS ORDERED: GLUCAGON 1 MG VIAL IM PRN (20:34)
[2020-03-31] MEDS ORDERED: ALBUTEROL/IPRATROPIUM 3 ML NEB RESP TX ONE (23:43)
[2020-03-31] MEDS: ALBUTEROL/IPRATROPIUM 3 ML NEB RESP TX SCH (23:53)
[2020-04-01] MEDS: SODIUM CHLORIDE 0.9% 1,000 ML IV SCH ×2 (00:48→11:36)
[2020-04-01] MEDS: cefTRIAXone 1,000 MG in SYRINGE 1 EACH IV SCH ×2 (00:49→20:30)
[2020-04-01] MEDS: CLINDAMYCIN INJ 600 MG in PREMIX 1 EACH IV SCH ×3 (00:50→16:57)
[2020-04-01] MEDS: ALBUTEROL/IPRATROPIUM 3 ML NEB RESP TX SCH ×3 (07:05→19:31)
[2020-04-01] MEDS ORDERED: SODIUM CHLORIDE 0.9% 1,000 ML IV SCH (08:30)
[2020-04-01] MEDS ORDERED: ETOMIDATE 20 MG/10 ML VIAL IV ONE (10:13)
[2020-04-01] MEDS ORDERED: propofoL 200 MG/20 ML VIAL IV ONE (10:13)
[2020-04-01] MEDS ORDERED: LIDOCAINE 2% 5 ML VIAL ONE (10:13)
[2020-04-01 14:23] LABS: Basophils % 0.2 % (0.0-0.8); Eosinophils # 0.1 10*3/uL (0.0-0.87); Eosinophils % 0.3 % (0.00-10.9); Hematocrit 27.8 VOL% (42.0-52.0); Hemoglobin 8.7 GM/DL (14.0-18.0); Immature Granulocytes % 1.2 %; Lymphocytes # 0.8 10*3/uL (1.4-4.0); Lymphocytes % 4.6 % (21.2-54.2); Mean Corpuscular HGB Conc 31.3 GM/DL (32-36); Mean Corpuscular Volume 74.5 FL (87-102); Mean Platelet Volume 9.4 FL (9.6-12.0); Monocytes % 6.7 % (1.7-12.7); Platelet Count 266 T/CUMM (130-400); Red Blood Count 3.73 MC/CUMM (3.8-5.5); Red Cell Distribution Width 16.5 % (9.3-17.3)
[2020-04-01] MEDS: HEPARIN 5,000 UNIT/1 ML VIAL SUBCUT SCH ×2 (14:34→22:48)
[2020-04-01] MEDS: LACTULOSE 20 GM/30 ML UDCUP PO SCH ×2 (14:35→20:30)
[2020-04-01 14:41] LABS: Calcium 9.9 MG/DL (8.5-10.1); Osmolality,Calculated 281.4 MOS/KG (273-304)
[2020-04-01 15:26] LABS: Lymphocytes 4 % (20-55); Segmented Neutrophils 90 % (50-85); Total Cells Counted 100
[2020-04-01 15:27] LABS: Anisocytosis 1+; Hypochromasia Slight; Microcytosis 1+; Platelet Estimate Normal; Target Cells Few
[2020-04-02] MEDS: ALBUTEROL/IPRATROPIUM 3 ML NEB RESP TX SCH ×4 (00:07→19:32)
[2020-04-02] MEDS: CLINDAMYCIN INJ 600 MG in PREMIX 1 EACH IV SCH ×3 (00:08→15:38)
[2020-04-02 05:46] LABS: Basophils % 0.2 % (0.0-0.8); Eosinophils # 0.1 10*3/uL (0.0-0.87); Eosinophils % 0.4 % (0.00-10.9); Hematocrit 27.7 VOL% (42.0-52.0); Hemoglobin 8.4 GM/DL (14.0-18.0); Immature Granulocytes % 1.2 %; Immature Granulocytes Absolute 0.21 #; Lymphocytes # 0.9 10*3/uL (1.4-4.0); Lymphocytes % 5.3 % (21.2-54.2); Mean Corpuscular HGB Conc 30.3 GM/DL (32-36); Mean Corpuscular Volume 74.3 FL (87-102); Monocytes % 8.6 % (1.7-12.7); Neutrophils % 84.3 % (38.7-73.9); Platelet Count 318 T/CUMM (130-400); Red Blood Count 3.73 MC/CUMM (3.8-5.5); Red Cell Distribution Width 16.2 % (9.3-17.3); White Blood Count 17.2 T/CUMM (4-12)
[2020-04-02 06:00] LABS: Calcium 10.2 MG/DL (8.5-10.1); Osmolality,Calculated 283.3 MOS/KG (273-304)
[2020-04-02 06:01] LABS: Calcium 10.4 MG/DL (8.5-10.1)
[2020-04-02] MEDS: HEPARIN 5,000 UNIT/1 ML VIAL SUBCUT SCH ×3 (06:36→22:03)
[2020-04-02] MEDS: LACTULOSE 20 GM/30 ML UDCUP PO SCH ×2 (08:40→21:04)
[2020-04-02] MEDS ORDERED: INFLUENZA VIRUS VACCINE 0.5 ML SYRINGE IM ONE (09:00)
[2020-04-02] MEDS: POTASSIUM CHLORIDE 20 MEQ/15 ML UDCUP PER TUBE PRN ×4 (12:30→17:35)
[2020-04-02] MEDS: cefTRIAXone 1,000 MG in SYRINGE 1 EACH IV SCH (21:04)
[2020-04-03] MEDS: CLINDAMYCIN INJ 600 MG in PREMIX 1 EACH IV SCH ×3 (00:17→18:26)
[2020-04-03] MEDS: ALBUTEROL/IPRATROPIUM 3 ML NEB RESP TX SCH ×4 (00:24→19:45)
[2020-04-03] MEDS: HEPARIN 5,000 UNIT/1 ML VIAL SUBCUT SCH ×3 (06:01→22:11)
[2020-04-03 06:31] LABS: Basophils # 0.1 10*3/uL (0.0-0.2); Basophils % 0.4 % (0.0-0.8); Eosinophils # 0.2 10*3/uL (0.0-0.87); Eosinophils % 1.4 % (0.00-10.9); Hematocrit 27.3 VOL% (42.0-52.0); Hemoglobin 8.3 GM/DL (14.0-18.0); Immature Granulocytes % 2.6 %; Immature Granulocytes Absolute 0.32 #; Lymphocytes # 0.9 10*3/uL (1.4-4.0); Lymphocytes % 7.1 % (21.2-54.2); Mean Corpuscular HGB Conc 30.4 GM/DL (32-36); Mean Platelet Volume 10.1 FL (9.6-12.0); Monocytes % 8.5 % (1.7-12.7); Platelet Count 285 T/CUMM (130-400); Red Blood Count 3.69 MC/CUMM (3.8-5.5); Red Cell Distribution Width 16.8 % (9.3-17.3); White Blood Count 12.4 T/CUMM (4-12)
[2020-04-03 09:09] LABS: Calcium 10.9 MG/DL (8.5-10.1)
[2020-04-03] MEDS: LACTULOSE 20 GM/30 ML UDCUP PO SCH ×2 (09:37→22:11)
[2020-04-03] MEDS: cefTRIAXone 1,000 MG in SYRINGE 1 EACH IV SCH (22:17)
[2020-04-04] MEDS: CLINDAMYCIN INJ 600 MG in PREMIX 1 EACH IV SCH ×4 (00:09→23:44)
[2020-04-04] MEDS: ALBUTEROL/IPRATROPIUM 3 ML NEB RESP TX SCH ×4 (01:39→19:55)
[2020-04-04] MEDS: HEPARIN 5,000 UNIT/1 ML VIAL SUBCUT SCH ×3 (05:38→21:52)
[2020-04-04] MEDS: LACTULOSE 20 GM/30 ML UDCUP PO SCH ×2 (09:46→21:52)
[2020-04-04] MEDS: cefTRIAXone 1,000 MG in SYRINGE 1 EACH IV SCH (21:51)
[2020-04-05] MEDS: ALBUTEROL/IPRATROPIUM 3 ML NEB RESP TX SCH ×4 (01:40→20:04)
[2020-04-05] MEDS: HEPARIN 5,000 UNIT/1 ML VIAL SUBCUT SCH ×3 (06:49→21:49)
[2020-04-05] MEDS: CLINDAMYCIN INJ 600 MG in PREMIX 1 EACH IV SCH ×2 (10:42→17:31)
[2020-04-05] MEDS: LACTULOSE 20 GM/30 ML UDCUP PO SCH ×2 (10:42→21:49)
[2020-04-05] MEDS: cefTRIAXone 1,000 MG in SYRINGE 1 EACH IV SCH (21:49)
[2020-04-06] MEDS: CLINDAMYCIN INJ 600 MG in PREMIX 1 EACH IV SCH ×3 (00:22→15:37)
[2020-04-06] MEDS: ALBUTEROL/IPRATROPIUM 3 ML NEB RESP TX SCH ×4 (01:48→19:29)
[2020-04-06] MEDS: HEPARIN 5,000 UNIT/1 ML VIAL SUBCUT SCH ×3 (06:26→22:33)
[2020-04-06] MEDS: LACTULOSE 20 GM/30 ML UDCUP PO SCH ×2 (11:45→22:32)
[2020-04-06] MEDS: cefTRIAXone 1,000 MG in SYRINGE 1 EACH IV SCH (22:33)
[2020-04-07] MEDS: ALBUTEROL/IPRATROPIUM 3 ML NEB RESP TX SCH ×4 (00:10→19:27)
[2020-04-07] MEDS: CLINDAMYCIN INJ 600 MG in PREMIX 1 EACH IV SCH ×3 (00:25→16:41)
[2020-04-07] MEDS: HEPARIN 5,000 UNIT/1 ML VIAL SUBCUT SCH ×3 (05:41→21:39)
[2020-04-07] MEDS: LACTULOSE 20 GM/30 ML UDCUP PO SCH ×2 (09:16→22:14)
[2020-04-07] MEDS: cefTRIAXone 1,000 MG in SYRINGE 1 EACH IV SCH (21:39)
[2020-04-08] MEDS: CLINDAMYCIN INJ 600 MG in PREMIX 1 EACH IV SCH ×2 (00:15→08:49)
[2020-04-08] MEDS: ALBUTEROL/IPRATROPIUM 3 ML NEB RESP TX SCH ×3 (00:25→13:30)
[2020-04-08] MEDS: HEPARIN 5,000 UNIT/1 ML VIAL SUBCUT SCH (06:02)
[2020-04-08 08:41] VITALS: BP 131/74
[2020-04-08] MEDS: LACTULOSE 20 GM/30 ML UDCUP PO SCH (08:54)
== END 2020-04-08 15:36 | DRG 137 ==
LOC: EDUNIT# → EDBD → N.ED 16:27 → SUATTDRO 20:34 → N.5E 20:34
PROVIDERS: ADMIT Internal Medicine; ATTEND Internal Medicine
PROC: EGDWPEG (ICD-10-PCS; 2020-04-01 09:05)